=== PATIENT | male | born 1970 | race Caucasian/White ===

== ENCOUNTER 2019-08-06 08:12 | Emergency (ER) | payer OTHER ==
[~2019-08-06] VITALS: Ht 182.9 cm; Wt 119.0 kg
--- NOTE | 2019-08-06 08:47 | PHYS DOC ---
Past History Past Medical History: No Pertinent History Adult General Chief Complaint Chief Complaint: LOWEREXTREMITY INJURY HPI HPI Patient works at the local assisted, and he was running at work, when he felt a pull and tightening and a burning sensation in his right calf. He is able to walk and bear weight but it is very painful to do so and he comes in on crutches. He denies any numbness or weakness, or any other falls or injuries. Palpation of his right calf worsens his pain. There are no alleviating factors to his symptoms. Review of Systems Review of Systems Musculoskeletal: Denies back pain or joint pain [] Integument: Denies rash or skin lesions [] Neurologic: Denies headache, focal weakness or sensory changes [] Physical Exam Physical Exam PHYSICAL EXAM: HEENT: Atruamatic NECK: Supple, normal ROM, non-tender. CARDIAC: Regular Rate and Rhythm LUNGS: Clear Bilaterally EXTREMITIES: There is tenderness to palpation of the soft tissues of the right calf. The distal part of the calf, as well as the Achilles tendon on the right, are nontender. The Achilles tendon is intact to palpation. Fisher's test is normal. Plantar flexion and dorsiflexion are intact and normal, but both are painful at full range of motion. Distal PMS is intact. The remainder the extremities are atraumatic. There is no bony tenderness to palpation to the lower extremity. EKG EKG [] Radiology/Procedures Radiology/Procedures [] Course & Med Decision Making Course & Med Decision Making I discussed the diagnosis of a suspected gastrocnemius strain or likely tear, low suspicion of an Achilles tendon injury, the need for rest, ice, compression, elevation, orthopedic follow-up, and return precautions. Dragon Disclaimer Dragragini Disclaimer This electronic medical record was generated, in whole or in part, using a voice recognition dictation system. Departure Departure: Impression: Primary Impression: Gastrocnemius tear Disposition: 01 HOME, SELF-CARE Condition: STABLE Referrals: PCP,UNKNOWN (PCP) Patient Instructions: Elastic Bandage and RICE, Medial Head Gastrocnemius Tear (Tennis Leg) with [facility] - Routine Care for Injuries Additional Instructions: Follow-up with orthopedics, . Please call to schedule appointment. Apply ice to the affected area. Rest, and Bert wrap may help improve your symptoms. Ibuprofen [id number] mg every 6 hours may help improve your pain. ANTONIO SHIRLEY MD Aug 06, 2019 08:47
== END 2019-08-06 08:53 | disposition home or self-care (01) ==
LOC: ER 08:12
DX: S86.911A Strain of unspecified muscle(s) and tendon(s) at lower leg level, right leg, initial encounter (principal); X58.XXXA Exposure to other specified factors, initial encounter; Y93.89 Activity, other specified; Y92.89 Other specified places as the place of occurrence of the external cause; Y99.8 Other external cause status
CPT/HCPCS: 99281